=== PATIENT | female | born 2000 | race Caucasian/White ===

== ENCOUNTER 2018-12-10 15:26 | Observation (INO) ==
--- NOTE | 2018-12-10 16:28 | OB/GYN Progress Note ---
Date of Encounter: 12/10/18 Time of Encounter: 16:18 - Assessment and Plan (1) 36 weeks gestation of Current Visit: Yes Status: Acute (2) Gestational hypertension Current Visit: Yes Status: Acute BP mild range on arrival to triage. Likely due to pain. PIH labs pending Qualifiers: Trimester: third trimester Qualified Code(s): O13.3 - Gestational [-induced] hypertension without significant proteinuria, third trimester (3) Vaginal discharge during in third trimester Current Visit: Yes Status: Acute SSE with thin, white, physiologic appearing discharge in vault. Negative nitrazine, negative fern. (4) Back pain affecting in third trimester Current Visit: Yes Status: Acute TTP throughout middle and lower back. UA pending Subjective - Subjective Interval history: 18 year-old presenting at 36w5d with c/o increasing abdominal and back pain today. She reports she was having back pain throughout her middle and lower back throughout the night. She then went to work today and had increasing back pain with intermittent lower abdominal pain. She denies fevers, chills, urinary symptoms, bleeding. She does admit to some leaking that she thought could be urine leaking but it doesn't appear yellow. No other complaints. Antepartum ROS: movement normal, no vaginal bleeding Objective - Exam FHR: category 1 FHR comments: 125 BPM, reactive NST Auscultation: bilateral: normal Abdomen: Present: soft, gravid Uterus: Absent: tenderness Cervical dilation: /-2
[2018-12-10 16:38] LABS: Basophils % 0.3 %; Eosinophils % 0.3 %; Hematocrit 31.9 % (35.3-44.9); Hemoglobin 10.6 g/dL (11.5-15.4); Immature Granulocytes % 1.1 % (0-4); Lymphocytes # 2.2 K/mcL (0.6-4.6); Lymphocytes % 19.4 %; Mean Corpuscular HGB Conc 33.2 g/dL (31.6-35.5); Mean Corpuscular Hemoglobin 28.7 pg (28.0-33.3); Mean Corpuscular Volume 86.4 fL (83.0-100.0); Mean Platelet Volume 11.1 fL (9.4-12.4); Monocytes # 0.9 K/mcL (0.0-1.3); Monocytes % 7.5 %; Neutrophils # 8.2 K/mcL (1.6-8.9); Nucleated Red Blood Cells 0.2 /100 WBC (0); Platelet Count 298 K/mcL (140-400); Red Blood Count 3.69 M/mcL (3.82-4.97); Red Cell Distribution Width 14.4 % (11.5-14.5); Segmented Neutrophils % 71.4 %; White Blood Count 11.5 K/mcL (4.3-11.1)
[2018-12-10 16:40] LABS: Bilirubin,Urine Negative (Negative); Blood,Urine Negative (Negative); Clarity,Urine Clear (Clear); Color,Urine Yellow (Yellow); Glucose,Urine (UA) Normal (Normal); Ketones,Urine Negative (Negative); Leukocyte Esterase,Urine Trace (Negative); Nitrite,Urine Negative (Negative); PH,Urine 6.5 pH Units (5.0-8.0); Protein,Urine 100 mg/dL (Neg-Trace); Specific Gravity,Urine 1.029 (1.010-1.025); Urobilinogen,Urine Normal (Normal)
[2018-12-10 16:42] LABS: Bacteria,Urine Moderate per hpf (None-Few); Hyaline Casts,Urine None Seen per lpf (None-Few); Squamous Epithelial Cell,Urine Many per lpf (None-Few)
[2018-12-10 16:47] LABS: Amphetamine Screen,Urine Negative ng/mL (Cutoff=1000); Barbiturate Screen,Urine Negative ng/mL (Cutoff=200); Benzodiazepines Screen,Urine Negative ng/mL (Cutoff=200); Cannabinoid Screen,Urine Negative ng/mL (Cutoff = 50); Cocaine Screen,Urine Negative ng/mL (Cutoff= 300); Opiate Screen,Urine Negative ng/mL (Cutoff=300); Phencyclidine Screen,Urine Negative ng/mL (Cutoff=25); Protein/Creatinine Ratio,Urine 0.47 mg/mg (0.00-0.20)
[2018-12-10 16:59] LABS: Alanine Aminotransferase 11 Units/L (7-52); Aspartate Amino Transferase 14 Units/L (13-39); BUN/Creatinine Ratio 24 (6-26); Blood Urea Nitrogen 12 mg/dL (6-20); Lactate Dehydrogenase 151 Units/L (140-271); Uric Acid 5.2 mg/dL (2.3-7.6); eGFR For African Americans > 60 (> 60); eGFR For Non-African Americans > 60 (> 60)
[2018-12-10] MEDS ORDERED: *HR* Nalbuphine 10 MG/ML AMPUL IV STA (17:51)
--- NOTE | 2018-12-10 18:11 | Event Note ---
Date of Encounter: 12/10/18 Time of Encounter: 17:55 Pt still c/o back discomfort, and occ uc's. She has no persistent SAEZ's, only lower exteremity swelling. Pt's LFT's are WNL, her urine prot/cr was .52. Her init bp was 158/92, her BP's have improved while being observed. Pts cvx hasn't changed but she remains quite uncomfortable. D/w pt concern over elevated bp's and worsening proteinuria. Pt at this time doesn't have severe preeclampsia. Will give Nubain to help with her pain and will plan induction on Thursday when she is 37 weeks. Pt aware of risks of prematurity and increased risk of c-sec with unfavorable cervix. Pt agrees with plan.
== END 2018-12-10 19:11 | disposition home or self-care (01) ==
LOC: 1NENULAB
PROVIDERS: ADMIT Registered Nurse; ATTEND Registered Nurse

== ENCOUNTER 2018-12-12 06:19 | Inpatient (IN) ==
[2018-12-12] MEDS ORDERED: Metoclopramide 10 MG/2 ML VIAL IVP PRN (06:57)
[2018-12-12] MEDS ORDERED: Famotidine 20 MG/2 ML VIAL IVP PRN (06:57)
[2018-12-12] MEDS ORDERED: Ringers Solution, Lactated 1,000 ML IVC SCH (07:00)
[2018-12-12] MEDS: miSOPROStol 25 MCG TABLET PO PRN ×2 (08:03→13:36)
--- NOTE | 2018-12-12 09:38 | OB/GYN History & Physical ---
Date of Encounter: 12/12/18 Time of Encounter: 09:35 Assessment and Plan (1) 37 weeks gestation of Current visit: Yes Status: Acute Patient reports good movement and no bleeding points fluid. Of note was found early gestation double collecting system on left side was 2 ureters. She had ultrasound on maternal medicine and followed closely for this. She has no hydronephrosis now she has had delivery at 18 is acceptable a nd will likely require follow-up with pediatric urology after . (2) Preeclampsia Current visit: Yes Status: Acute Patient presents today for induction of labor secondary to preeclampsia based on recent elevations in blood pressure. Multiple recent blood pressures documented 140s over 90s. She has had off and on headache has been afraid to take Tylenol because infant has double collecting system on the left side. On reevaluation on Thursday protein creatinine ratio was 0.47. She has had worsening edema upper and lower extremities as well as face last week. She is aware of risks of prematurity however given recent elevations in blood pressure as well as worsening proteinuria headaches and edema decision was made to proceed with induction of labor. Will give Cytotec 50 g orally. Qualifiers: Trimester: third trimester Qualified Code(s): O14.93 - Unspecified pre- eclampsia, third trimester History of Present Illness Chief complaint: Here for induction of labor secondary to preeclampsia based on elevated blo HPI: Ms. Salmon is a 18 year old female 1 para 0 female at 37 weeks gestation presents for induction of labor. Thinks his first encompassing by recent elevations in blood pressure. She was seen on labor and delivery Thursday at which time she is 36 weeks 5 days gestation with blood pressures 140s 150s over mid to upper 90s. That times did report a headache off and on and some edema. She did have significant proteinuria with a protein creatinine ratio 0.47. Her preeclampsia labs were otherwise normal. Upon arrival she reports irregular contractions the bleeding or leakage of fluid Past Med Surg Social Fam HX - Past Medical History Source: patient, old records reviewed Medical history: no medical history Psychiatric history: depression - Past Surgical History Surgical History: no surgical history - Social History Smoking Status: Never smoker Smokeless Tobacco Status: No Alcohol use: none Drug use: none - Family History Mother Living Status: Still Living Hx Family Cardiac Disorders: No Hx Family Respiratory Disorders: No Hx Family Cancer: No Hx Family GI Disorders: No Hx Family Endocrine Disorder: No Hx Family Neuromuscular Disorders: No Hx Family Neurologic Disorders: No Hx Family HEENT Disorders: No Hx Family Autoimmune Disorders: No Obstetrical History - Pregnancies : 1 Medications and Allergies Vit37/Iron/Folic Acid [Prenata Chewable Tablet] 1 mg PO DAILY 06/16/18 [History] Allergy/AdvReac Type Severity Reaction Status Date / Time No Known Allergies Allergy Verified 12/12/18 06:54 Exam - Constitutional Constitutional: well developed, well nourished - HEENT HEENT: EOMI, PERRL - Neck Neck exam: full ROM - Lungs Respiratory exam: CTAB - Cardiovascular Cardiovascular exam: RRR - Abdomen Abdomen: Present: gravid - Extremities Extremities exam: full ROM Deep Tendon Reflex Grade: 2+ Normal - Cervix Dilation: 2 Effacement: 70 Station: -2 - Uterus Uterus exam: Present: enlarged Results All other labs normal. - VTE Reasons for not Prescribing Prophylaxis: Treatment not Indicated - Low risk for VTE
[2018-12-12 11:24] LABS: Basophils % 0.2 %; Eosinophils % 0.2 %; Hematocrit 33.4 % (35.3-44.9); Hemoglobin 10.9 g/dL (11.5-15.4); Immature Granulocytes % 0.8 % (0-4); Lymphocytes # 2.4 K/mcL (0.6-4.6); Lymphocytes % 19.8 %; Mean Corpuscular HGB Conc 32.6 g/dL (31.6-35.5); Mean Corpuscular Hemoglobin 27.9 pg (28.0-33.3); Mean Corpuscular Volume 85.6 fL (83.0-100.0); Mean Platelet Volume 10.9 fL (9.4-12.4); Monocytes # 0.9 K/mcL (0.0-1.3); Monocytes % 7.1 %; Neutrophils # 8.6 K/mcL (1.6-8.9); Platelet Count 295 K/mcL (140-400); Red Cell Distribution Width 14.7 % (11.5-14.5); Segmented Neutrophils % 71.9 %
[2018-12-12 11:42] LABS: Alanine Aminotransferase 11 Units/L (7-52); Aspartate Amino Transferase 15 Units/L (13-39); BUN/Creatinine Ratio 14 (6-26); Blood Urea Nitrogen 8 mg/dL (6-20); Lactate Dehydrogenase 144 Units/L (140-271); Uric Acid 4.9 mg/dL (2.3-7.6); eGFR For African Americans > 60 (> 60); eGFR For Non-African Americans > 60 (> 60)
[2018-12-12] MEDS ORDERED: Ropivacaine/PF 0.2% 20 ML VIAL EP ONE (13:33)
[2018-12-12] MEDS ORDERED: *HR* FentaNYL (PF) 100 MCG/2 ML VIAL EP ONE (13:33)
[2018-12-12] MEDS ORDERED: Ondansetron 4 MG/2 ML VIAL IVP PRN (13:33)
[2018-12-12] MEDS ORDERED: Naloxone 0.4 MG/ML INJ IVP PRN (13:33)
[2018-12-12] MEDS ORDERED: EPHEDrine 50 MG/ML VIAL IVP PRN (13:33)
--- NOTE | 2018-12-12 13:36 | Anesthesia Evaluation PreOp ---
Date of Encounter: 12/12/18 Time of Encounter: 13:30 - Past History Planned Operation: AVILA Cardiac History: Denies any Significant Hx Pulmonary History: Smoker, Pack/yr (0.5pk/yr) [employer] History: Denies Any Significant HX Other Medical History: Other (anxiety/depression) Anesthesia History: No Prior Anesthetic Complications, Past Anesthesia (no previous surgery/no family history of complictions) : Yes Alcohol Use: none Drug use: none Medications and Allergies Vit37/Iron/Folic Acid [Prenata Chewable Tablet] 1 mg PO DAILY 06/16/18 [History] Allergy/AdvReac Type Severity Reaction Status Date / Time No Known Allergies Allergy Verified 12/12/18 06:54 - Meds/Allergy Pre-op Review Medications Reviewed: Yes Allergies Reviewed: Yes Beta Blockers on Current Med List: No Anesthesia Results - Labs 12/12/18 11:12 12/12/18 11:12 Anesthesia Exam BP 127/82 P 93 R 16 T 98.6 Height: 5'1" Weight: 83.2kg NPO (# of Hours): 6 Pain Scale: 3 Pain Scale Used: Numeric (1 - 10) - HEENT Pupil (Motor): Pupils equal Mallampati: II Teeth: Normal Oral Opening: Greater than 3 - [employer] LOC: Oriented [employer] Motor: Normal RUE, Normal LUE, Normal RLE, Normal LLE, Normal Face [employer] Sensory: Normal: RUE, LUE, RLE, LLE, Face - Cardiac Rhythm: Regular Murmur: None JVD: No Carotid Bruit: No - Pulmonary Breath Sounds: bilateral Clear Respiratory Effort: Symmetrical Anesthesia Assess/Plan ASA Score: 2 Level of consciousness: Cooperative, Oriented, Tranquil Anesthetic Plan: Epidural Autologous Blood: No Monitoring Plan: Standard Monitors Recovery Plan: Other
--- NOTE | 2018-12-12 13:42 | Event Note ---
Date of Encounter: 12/12/18 Time of Encounter: 13:41 Pt having irregular uc's. Glover cath placed through cervix and 40 cc NS instilled into the balloon. Pt tolerated well. Will rpt Cytotec. RNST
[2018-12-12] MEDS ORDERED: Epidural Premix (fent/bupiv) 110 ML EP SCH (13:45)
[2018-12-12] MEDS ORDERED: *HR* FentaNYL (PF) 100 MCG/2 ML VIAL ONE (14:47)
[2018-12-12] MEDS ORDERED: Ropivacaine/PF 0.2% 20 ML VIAL ONE (14:47)
[2018-12-12 15:16] LABS: Amphetamine Screen,Urine Negative ng/mL (Cutoff=1000); Barbiturate Screen,Urine Negative ng/mL (Cutoff=200); Benzodiazepines Screen,Urine Negative ng/mL (Cutoff=200); Cannabinoid Screen,Urine Negative ng/mL (Cutoff = 50); Cocaine Screen,Urine Negative ng/mL (Cutoff= 300); Opiate Screen,Urine Negative ng/mL (Cutoff=300); Phencyclidine Screen,Urine Negative ng/mL (Cutoff=25); Protein/Creatinine Ratio,Urine 0.37 mg/mg (0.00-0.20)
--- NOTE | 2018-12-12 15:29 | Anesthesia Procedures ---
Date of Encounter: 12/12/18 Time of Encounter: 14:52 Procedures: Anesthesia - Epidural/Spinal Patient ID/Chart reviewed: Yes Patient examined: Yes OB Eval: Gestational age: 37 OB Eval: : 1 OB Eval: Hx Para: 0 OB Eval: Dilated at (cm): 3 OB Eval: Contractions: Non-stressed pattern Consent Obtained: Yes Supplemental Oxygen: None/Room Air Site Prep: Aseptic Technique, Sterile prep and drape, Povidone-Iodine 1% Patient position: upright Local Anesthetic: Lidocaine 1% Amount of Local Anesthetic used: 3 Touhy Needle Gauge: 18 Touhy Needle Depth (cm): 6 Catheter Depth at Skin (cm): 12 Test Dose (1.5% Lido + Epi): Volume given (mls): 3 Test Dose Result: Negative Loading Dose: Fentanyl (mcg): 100 Loading Dose Administered: Thru Catheter Infusion Med: 0.125% Bupivacaine w/ 2 mcg/ml Fentanyl Infusion Rate (mls/hr): [address]: Tegaderm Interspace Used: L4-L5 Loss of Resistance (JIM): Yes Blood: No CSF: No Paresthesia: No Procedure: AVILA placed 1st pass in upright position. JIM achieved with Normal saline. Catheter threaded with ease to 12cm at the skin. Test dose negative. Pt stated comfort following bolus dose administration. VSS throughout. Vitals + FHT's: 1452 BP 127/60 P 87 R 18 1525 BP 101/57 P 112 R 16
[2018-12-12] MEDS ORDERED: EPHEDrine 50 MG/ML VIAL ONE (15:39)
[2018-12-12] MEDS ORDERED: *HR* Phenylephrine 10 MG/ML VIAL ONE (15:40)
--- NOTE | 2018-12-12 20:00 | Anesthesia Progress Note ---
Date of Encounter: 12/12/18 Time of Encounter: 19:50 Anesthesia Note - Note Note: 12/12/18 19:57 Called to patient bedside with complaints of breakthrough labor discomfort across lower abdomen. Ropivicaine 0.2% 10ml administered via epidural catheter. Pt stated comfort following bolus administration. VSS.
[2018-12-12] MEDS ORDERED: Oxytocin 20 units/ LR 1000 mL 20 UNIT/1,000 ML BAG IVC SCH (21:45)
--- NOTE | 2018-12-12 23:12 | OB/GYN Procedure Note ---
Delivery - Delivery Date: 12/12/18 Provider: Rodolfo Marie Intrapartum events: none Delivery induction: queen, misoprostol Delivery monitor: external FHT, internal FHT Anesthesia: epidural Quantitated Blood Loss: 50 - (s) A Delivery Date: 12/12/18 Delivery Time: 22:45 Presentation: vertex Position: JONO Route of delivery: Gender: Female Viability: Viable Pounds: 4 Ounces: 15 at 1 minute: 9 at 5 mins: 9 Specimens collected: cord blood Placenta: spontaneous Cord: 3 umbilical vessels - Repair Episiotomy: none Laceration Description: None - Complications Delivery complications: none - Disposition Mom disposition: stable in LDR [place] disposition: stable in LDR - Comments Comments: Recent status post normal spontaneous vaginal delivery of liveborn female infant weighing 4 lbs. 15 oz. Delivery was from left occiput anterior presentation over an intact perineum. There was no shoulder dystocia. There was no nuchal cord. Spontaneous delivery of a normal placenta with three-vessel cord. Inspection of placenta found to be intact. Uterus was massaged until firm. This fibroid loss 50 mL
[2018-12-13] MEDS ORDERED: Oxytocin 20 units/ LR 1000 mL 20 UNIT/1,000 ML BAG IVC ONE (01:21)
[2018-12-13] MEDS ORDERED: Rho Immune Globulin 1,500 UNIT SYRINGE IM PRN (01:42)
[2018-12-13] MEDS ORDERED: Oxytocin 20 units/ LR 1000 mL 20 UNIT/1,000 ML BAG IVC SCH (01:42)
[2018-12-13] MEDS ORDERED: Measles/Mumps/Rubella Vacc 0.5 ML VIAL SQ PRN (01:42)
[2018-12-13] MEDS ORDERED: Acetaminophen 325 MG TABLET PO PRN (01:42)
[2018-12-13 05:32] LABS: Basophils % 0.2 %; Hematocrit 30.2 % (35.3-44.9); Hemoglobin 9.9 g/dL (11.5-15.4); Lymphocytes % 10.6 %; Mean Corpuscular HGB Conc 32.8 g/dL (31.6-35.5); Mean Corpuscular Volume 85.3 fL (83.0-100.0); Mean Platelet Volume 10.7 fL (9.4-12.4); Monocytes # 1.2 K/mcL (0.0-1.3); Monocytes % 6.4 %; Platelet Count 254 K/mcL (140-400); Red Blood Count 3.54 M/mcL (3.82-4.97); Red Cell Distribution Width 14.6 % (11.5-14.5); Segmented Neutrophils % 81.8 %
[2018-12-13 05:34] LABS: Neutrophils # 15.1 K/mcL (1.6-8.9); White Blood Count 18.5 K/mcL (4.3-11.1)
[2018-12-13] MEDS: Ibuprofen 600 MG TABLET PO PRN ×2 (07:58→19:51)
[2018-12-13] MEDS ORDERED: Prenatal Vit/FA 1 EACH TABLET PO SCH (09:00)
--- NOTE | 2018-12-13 11:19 | OB/GYN Progress Note ---
Date of Encounter: 12/13/18 Time of Encounter: 11:17 - Assessment and Plan (1) Status post vaginal delivery Current Visit: Yes Status: Acute Patient meeting day one milestones. Pain well-controlled with prescribed medications. Voiding without difficulty, tolerating regular diet, bleeding light. No bowel movement yet. Anticipate discharge tomorrow (2) Acute blood loss anemia Current Visit: Yes Status: Acute Continue daily iron. Patient is asymptomatic with hemoglobin of 9.9 (3) Breast feeding status of mother Current Visit: Yes Status: Acute support as needed. Patient states she has a breast pump at home. (4) Preeclampsia Current Visit: Yes Status: Acute Status post vaginal delivery after induction of labor for preeclampsia. Patient is asymptomatic today with normal blood pressures. Routine follow-up for visit. Qualifiers: Trimester: third trimester Qualified Code(s): O14.93 - Unspecified pre- eclampsia, third trimester Subjective - Subjective Principal diagnosis: Status post delivery Interval history: Delivery Date: 12/12/18 Provider: Rodolfo Marie Intrapartum events: none Delivery induction: queen, misoprostol Delivery monitor: external FHT, internal FHT Anesthesia: epidural Quantitated Blood Loss: 50 - Infant (s) Infant A Infant Delivery Date: 12/12/18 Delivery Time: 22:45 Presentation: vertex Position: JONO Route of delivery: Gender: Female Viability: Viable Pounds: 4 Ounces: 15 at 1 minute: 9 at 5 mins: 9 Specimens collected: cord blood Placenta: spontaneous Cord: 3 umbilical vessels - Repair Episiotomy: none Laceration Description: None - Complications Delivery complications: none - Disposition Mom disposition: stable in LDR disposition: stable in LDR - Comments Comments: Recent status post normal spontaneous vaginal delivery of liveborn female weighing 4 lbs. 15 oz. Delivery was from left occiput anterior presentation over an intact perineum. There was no shoulder dystocia. There was no nuchal cord. Spontaneous delivery of a normal placenta with three-vessel cord. Inspection of placenta found to be intact. Uterus was massaged until firm. This fibroid loss 50 mL Patient reports: appetite normal, voiding normally, pain well controlled, ambulating normally [place]: doing well, nursing well Objective - Latest Vital Signs Latest vital signs: Vital Signs Temp Pulse Resp BP Pulse Ox 12/13/18 08:08 98.2 F 92 16 122/82 98 12/13/18 03:31 99.8 F H 99 14 120/75 97 12/13/18 02:30 100 F H 110 14 123/74 97 12/13/18 01:30 99.4 F 91 14 136/88 97 Intake and Output 12/12/18 12/13/18 12/13/18 23:59 07:59 15:59 Output Total 400 / 400 Balance -400 / -400 Output: Urine 400 / 400 Other: # Voids 1 Weight 83.1 kg Patient Weight 12/13/18 23:59 Weight 83.1 kg - Exam Lungs: bilateral: normal Chest: Normal S1, Normal S2 Extremities: Present: normal Abdomen: Present: normal appearance, soft Uterus: Present: normal, firm Uterus Position: At Umbilicus, Right of Midline - Labs Labs: Laboratory Results - last 24 hr 12/12/18 12/12/18 12/12/18 07:35 07:35 11:12 WBC 12.0 H RBC 3.90 Hgb 10.9 L Hct 33.4 L MCV 85.6 MCH 27.9 L MCHC 32.6 RDW 14.7 H Plt Count 295 MPV 10.9 Immature Gran % 0.8 Seg Neutrophils % 71.9 Lymphocytes % 19.8 Monocytes % 7.1 Eosinophils % 0.2 Basophils % 0.2 Neutrophils # 8.6 Lymphocytes # 2.4 Monocytes # 0.9 Eosinophils # 0.0 Basophils # 0.0 BUN Creatinine Est GFR ( Amer) Est GFR (Non-Af Amer) BUN/Creatinine Ratio Uric Acid AST ALT Lactate Dehydrogenase Urine Creatinine 128 Protein/Creatinin Ratio 0.37 H Urine Total Protein 47 H Urine Opiates Screen Negative Ur Buprenorphine Scrn Negative Ur Barbiturates Screen Negative Ur Phencyclidine Scrn Negative Ur Amphetamines Screen Negative U Benzodiazepines Scrn Negative Urine Cocaine Screen Negative U Marijuana (THC) Screen Negative Ur Drug Screen Interp See Below 12/12/18 12/13/18 11:12 05:20 WBC 18.5 H D RBC 3.54 L Hgb 9.9 L Hct 30.2 L MCV 85.3 MCH 28.0 MCHC 32.8 RDW 14.6 H Plt Count 254 MPV 10.7 Immature Gran % 1.0 Seg Neutrophils % 81.8 Lymphocytes % 10.6 Monocytes % 6.4 Eosinophils % 0.0 Basophils % 0.2 Neutrophils # 15.1 H Lymphocytes # 2.0 Monocytes # 1.2 Eosinophils # 0.0 Basophils # 0.0 BUN 8 Creatinine 0.56 L Est GFR ( Amer) > 60 Est GFR (Non-Af Amer) > 60 BUN/Creatinine Ratio 14 Uric Acid 4.9 AST 15 ALT 11 Lactate Dehydrogenase 144 Urine Creatinine Protein/Creatinin Ratio Urine Total Protein Urine Opiates Screen Ur Buprenorphine Scrn Ur Barbiturates Screen Ur Phencyclidine Scrn Ur Amphetamines Screen U Benzodiazepines Scrn Urine Cocaine Screen U Marijuana (THC) Screen Ur Drug Screen Interp
[2018-12-14] MEDS ORDERED: Lanolin 7 G OINT...G. TP PRN (02:49)
[2018-12-14 05:54] LABS: Basophils % 0.3 %; Eosinophils # 0.1 K/mcL (0.0-0.6); Eosinophils % 0.7 %; Hematocrit 30.8 % (35.3-44.9); Hemoglobin 9.8 g/dL (11.5-15.4); Immature Granulocytes % 1.2 % (0-4); Lymphocytes # 3.5 K/mcL (0.6-4.6); Lymphocytes % 22.6 %; Mean Corpuscular HGB Conc 31.8 g/dL (31.6-35.5); Mean Corpuscular Hemoglobin 27.5 pg (28.0-33.3); Mean Corpuscular Volume 86.3 fL (83.0-100.0); Mean Platelet Volume 11.1 fL (9.4-12.4); Monocytes # 1.1 K/mcL (0.0-1.3); Neutrophils # 10.5 K/mcL (1.6-8.9); Platelet Count 295 K/mcL (140-400); Red Blood Count 3.57 M/mcL (3.82-4.97); Red Cell Distribution Width 15.1 % (11.5-14.5); Segmented Neutrophils % 68.2 %; White Blood Count 15.4 K/mcL (4.3-11.1)
[2018-12-14 06:08] LABS: Alanine Aminotransferase 10 Units/L (7-52); Aspartate Amino Transferase 16 Units/L (13-39); BUN/Creatinine Ratio 13 (6-26); Blood Urea Nitrogen 7 mg/dL (6-20); Lactate Dehydrogenase 172 Units/L (140-271); Uric Acid 4.5 mg/dL (2.3-7.6); eGFR For African Americans > 60 (> 60); eGFR For Non-African Americans > 60 (> 60)
[2018-12-14 08:02] VITALS: BP 125/81
--- NOTE | 2018-12-14 08:20 | Discharge Summary ---
Date of Encounter: 12/14/18 Time of Encounter: 08:17 - Discharge Diagnosis (1) Vaginal delivery Priority: Primary Status: Acute Comments: Continue routine care discharge home today follow up with Dr. Ferraro in 4-6 weeks (2) Breast feeding status of mother Priority: Secondary Status: Acute Comments: support prn - Discharge Medications Prescriptions: New Ferrous Sulfate 325 mg PO DAILY tablet Continued Vit37/Iron/Folic Acid [Prenata Chewable Tablet] 1 mg PO DAILY Home Medications: Vit37/Iron/Folic Acid [Prenata Chewable Tablet] 1 mg PO DAILY 06/16/18 [History] Ferrous Sulfate 325 mg PO DAILY tablet 12/14/18 [Rx] Allergies/Adverse Reactions: Allergy/AdvReac Type Severity Reaction Status Date / Time No Known Allergies Allergy Verified 12/12/18 06:54 Data Procedures and tests throughout hospitalization: Laboratory Tests 12/12/18 12/12/18 12/12/18 07:35 07:35 11:12 WBC 12.0 H RBC 3.90 Hgb 10.9 L Hct 33.4 L MCV 85.6 MCH 27.9 L MCHC 32.6 RDW 14.7 H Plt Count 295 MPV 10.9 Immature Gran % 0.8 Seg Neutrophils % 71.9 Lymphocytes % 19.8 Monocytes % 7.1 Eosinophils % 0.2 Basophils % 0.2 Neutrophils # 8.6 Lymphocytes # 2.4 Monocytes # 0.9 Eosinophils # 0.0 Basophils # 0.0 BUN Creatinine Est GFR ( Amer) Est GFR (Non-Af Amer) BUN/Creatinine Ratio Uric Acid AST ALT Lactate Dehydrogenase Urine Creatinine 128 Protein/Creatinin Ratio 0.37 H Urine Total Protein 47 H Urine Opiates Screen Negative Ur Buprenorphine Scrn Negative Ur Barbiturates Screen Negative Ur Phencyclidine Scrn Negative Ur Amphetamines Screen Negative U Benzodiazepines Scrn Negative Urine Cocaine Screen Negative U Marijuana (THC) Screen Negative Ur Drug Screen Interp See Below 12/12/18 12/13/18 12/14/18 11:12 05:20 04:51 WBC 18.5 H D 15.4 H RBC 3.54 L 3.57 L Hgb 9.9 L 9.8 L Hct 30.2 L 30.8 L MCV 85.3 86.3 MCH 28.0 27.5 L MCHC 32.8 31.8 RDW 14.6 H 15.1 H Plt Count 254 295 MPV 10.7 11.1 Immature Gran % 1.0 1.2 Seg Neutrophils % 81.8 68.2 Lymphocytes % 10.6 22.6 Monocytes % 6.4 7.0 Eosinophils % 0.0 0.7 Basophils % 0.2 0.3 Neutrophils # 15.1 H 10.5 H Lymphocytes # 2.0 3.5 Monocytes # 1.2 1.1 Eosinophils # 0.0 0.1 Basophils # 0.0 0.0 BUN 8 Creatinine 0.56 L Est GFR ( Amer) > 60 Est GFR (Non-Af Amer) > 60 BUN/Creatinine Ratio 14 Uric Acid 4.9 AST 15 ALT 11 Lactate Dehydrogenase 144 Urine Creatinine Protein/Creatinin Ratio Urine Total Protein Urine Opiates Screen Ur Buprenorphine Scrn Ur Barbiturates Screen Ur Phencyclidine Scrn Ur Amphetamines Screen U Benzodiazepines Scrn Urine Cocaine Screen U Marijuana (THC) Screen Ur Drug Screen Interp 12/14/18 04:51 WBC RBC Hgb Hct MCV MCH MCHC RDW Plt Count MPV Immature Gran % Seg Neutrophils % Lymphocytes % Monocytes % Eosinophils % Basophils % Neutrophils # Lymphocytes # Monocytes # Eosinophils # Basophils # BUN 7 Creatinine 0.52 L Est GFR ( Amer) > 60 Est GFR (Non-Af Amer) > 60 BUN/Creatinine Ratio 13 Uric Acid 4.5 AST 16 ALT 10 Lactate Dehydrogenase 172 Urine Creatinine Protein/Creatinin Ratio Urine Total Protein Urine Opiates Screen Ur Buprenorphine Scrn Ur Barbiturates Screen Ur Phencyclidine Scrn Ur Amphetamines Screen U Benzodiazepines Scrn Urine Cocaine Screen U Marijuana (THC) Screen Ur Drug Screen Interp Labs on day of discharge: Labs from last 24 hours 12/14/18 12/14/18 04:51 04:51 WBC 15.4 H RBC 3.57 L Hgb 9.8 L Hct 30.8 L MCV 86.3 MCH 27.5 L MCHC 31.8 RDW 15.1 H Plt Count 295 MPV 11.1 Immature Gran % 1.2 Seg Neutrophils % 68.2 Lymphocytes % 22.6 Monocytes % 7.0 Eosinophils % 0.7 Basophils % 0.3 Neutrophils # 10.5 H Lymphocytes # 3.5 Monocytes # 1.1 Eosinophils # 0.1 Basophils # 0.0 BUN 7 Creatinine 0.52 L Est GFR ( Amer) > 60 Est GFR (Non-Af Amer) > 60 BUN/Creatinine Ratio 13 Uric Acid 4.5 AST 16 ALT 10 Lactate Dehydrogenase 172 Date of admission: 12/12/18 06:19 Primary care physician: PCP NONE Consults: 12/13/18 01:42 Consult to Clinical Registered Nurse [CONS] Routine Comment: Vaginal delivery, consult needed Discharging clinician: Yanira Edward Anticipated date of discharge: 12/14/18 - Patient Status Disposition: Home, Self-Care Condition: Good Functional capacity at discharge: independent ambulation - Discharge Instructions Follow Up With: NONE,PCP [Primary Care Provider] - - Diet and Activity Activity: increase activity as tolerated Diet: regular diet Hospital Course Reason for admission: induction of labor Delivery: Episiotomy: none Other procedures: none Discharge diagnosis: IUP at term delivered baby: female (breast feeding) Time Attestation: Total time spent providing and/or coordinating discharge services: Time Spent: Less than 30 minutes Exam - Constitutional Vitals: Temp Pulse Resp BP Pulse Ox 98.1 F 97 16 125/81 98 12/14/18 08:02 12/14/18 08:02 12/14/18 08:02 12/14/18 08:02 12/13/18 19:50 General appearance IM: A&O X 3, pleasant, answers questions appropriately - Respiratory Respiratory exam: Present: CTAB - Cardiovascular Cardiovascular exam IM: Present: RRR, +S1, +S2 - GI/Abdominal GI/Abdominal exam IM: normal bowel sounds - Uterine Tone: Firm Uterus Position: At Umbilicus, Midline - Extremities Exam Extremities exam IM: Present: full ROM, normal capillary refill, normal inspection - Neurological Exam Neurological exam: alert, oriented X3, reflexes normal
== END 2018-12-14 10:55 | disposition home or self-care (01) | DRG 560 ==
LOC: 1NENULAB 06:19 → 1NENUOBS 12-13 01:14
PROVIDERS: ADMIT Obstetrics & Gynecology; ATTEND Obstetrics & Gynecology